=== PATIENT | male | born 1970 | race Caucasian/White ===

== ENCOUNTER 2016-09-19 12:37 | Emergency (ER) | payer BC ==
[~2016-09-19] VITALS: Ht 175.3 cm; Wt 108.8 kg
[2016-09-19 14:25] LABS: HEMATOCRIT 43.8 % (38.0-50.0); MCHC 33.3 G/DL (30.0-36.0); MCV 81.1 FL (86-99); MEAN PLAT.VOLUME 8.9 uM^3 (9.0-12.4); PLATELET COUNT 315 K/uL (156-360); RBC DIS.WIDTH-CV 13.2 % (11.8-14.6); RBC DIS.WIDTH-SD 38.2 % (39-53); WHITE BLOOD COUNT 6.5 K/uL (4.1-10.2)
[2016-09-19 14:35] LABS: CHLORIDE 104 mEq/L (99-109); POTASSIUM 4.2 mEq/L (3.7-5.4); SODIUM 138 mEq/L (136-147)
[2016-09-19 14:36] LABS: GLUCOSE 89 mg/dL (70-99)
[2016-09-19 14:38] LABS: ANION GAP 11 MEQ/L (2-14)
[2016-09-19 14:40] LABS: GFR ESTIMATE (CALCULATED) > 59 mL/min/
[2016-09-19 14:41] LABS: UREA NITROGEN (BUN) 8 mg/dL (9-23)
[2016-09-19 15:02] VITALS: BP 146/87
== END 2016-09-19 15:25 | disposition home or self-care (01) ==
LOC: EXP 12:37 → EME 12:37 → EXP 15:25
PROVIDERS: Physician Assistant
DX: L03.115 Cellulitis of right lower limb (principal); S71.131A Puncture wound without foreign body, right thigh, initial encounter; W45.8XXA Other foreign body or object entering through skin, initial encounter; Y92.69 Other specified industrial and construction area as the place of occurrence of the external cause; Y99.0 Civilian activity done for income or pay
CPT/HCPCS: 76882; 80048; 85027; 99281; 99284; J0696; J7050